=== PATIENT | male | born 1945 | race Caucasian/White ===

== ENCOUNTER → 2016-12-29 | Outpatient (REF) | payer MEDICARE, BC, OTHER | LOC: M SFHCCLAY 08:11 | PROVIDERS: ATTEND Nurse Practitioner | DX: M10.9 Gout, unspecified (principal); E03.9 Hypothyroidism, unspecified ==

== ENCOUNTER → 2017-03-23 | Outpatient (REF) | payer MEDICARE, BC, OTHER ==
[2017-03-23 12:36] LABS: ALBUMIN 3.8 GM/DL (3.2-5.2); ALBUMIN/GLOBULIN RATIO 1.23 (1.00-1.93); BILIRUBIN,TOTAL 0.6 MG/DL (0.2-1.0); CREATININE FOR GFR 1.73 MG/DL (0.70-1.30); GLOMERULAR FILTRATION RATE 41.5 (>42); POTASSIUM SERUM 4.4 MEQ/L (3.5-5.1); TOTAL PROTEIN 6.9 GM/DL (6.4-8.2)
== END ==
LOC: M SFHCCLAY 06:30
PROVIDERS: ATTEND Nurse Practitioner
DX: N18.9 Chronic kidney disease, unspecified (principal); E03.9 Hypothyroidism, unspecified
CPT/HCPCS: 80053; 84443; G0463

== ENCOUNTER → 2017-04-16 | Outpatient (REF) | payer MEDICARE, BC, OTHER | LOC: M SFHCCLAY 08:04 | PROVIDERS: ATTEND Urology | DX: N40.1 Benign prostatic hyperplasia with lower urinary tract symptoms (principal) ==

== ENCOUNTER → 2017-07-15 | Outpatient (REF) | payer MEDICARE, BC, OTHER | LOC: M LAB REF 15:56 | PROVIDERS: ATTEND Internal Medicine Nephrology | DX: D64.9 Anemia, unspecified (principal) ==

== ENCOUNTER → 2017-09-23 | Outpatient (REF) | payer MEDICARE, BC, OTHER ==
[2017-09-23 11:46] LABS: MEAN CORPUSCULAR HEMOGLOBIN 35.1 pg (27.0-33.0); MEAN CORPUSCULAR HGB CONC 34.8 g/dl (32.0-36.5); MEAN CORPUSCULAR VOLUME 100.8 fl (80.0-96.0); PLATELET COUNT, AUTOMATED 265 10^3/uL (150-450); RED CELL DISTRIBUTION WIDTH 12.2 % (11.5-14.5); WHITE BLOOD COUNT 7.8 10^3/uL (4.0-10.0)
[2017-09-23 12:38] LABS: ALBUMIN 3.9 GM/DL (3.2-5.2); ALBUMIN/GLOBULIN RATIO 1.26 (1.00-1.93); BILIRUBIN,TOTAL 0.6 MG/DL (0.2-1.0); CALCIUM LEVEL 9.2 MG/DL (8.8-10.2); CREATININE FOR GFR 1.84 MG/DL (0.70-1.30); FREE T4 1.2 NG/DL (0.76-1.46); GLOMERULAR FILTRATION RATE 38.6 (>42); POTASSIUM SERUM 4.3 MEQ/L (3.5-5.1)
== END ==
LOC: M SFHCCLAY 07:30
PROVIDERS: ATTEND Nurse Practitioner
DX: E03.9 Hypothyroidism, unspecified (principal); E78.2 Mixed hyperlipidemia; N18.9 Chronic kidney disease, unspecified
CPT/HCPCS: 80053; 80061; 84439; 84443; 85027; G0463

== ENCOUNTER 2017-11-11 09:17 | Day surgery (SDC) | payer MEDICARE, BC, OTHER ==
[~2017-11-11] VITALS: Ht 170.2 cm; Wt 82.1 kg
[~2017-11-11 09:17] MED LIST: ALLO100T PO; CRES40TA PO; FLOM5CAP PO; GEMF600T PO; HYDR25TAB PO; LEVO100T5 PO; LOSA50TA20 PO; MAGN1TAB25 PO; METO25TA4 PO; MULT1TAB10 PO; OMEP40CA2 PO; SILD50TA PO; VITA100067 PO
[2017-11-11] MEDS ORDERED: NS 1,000 ML IV ONE (10:00)
[2017-11-11] MEDS ORDERED: LIDOCAINE 2% INJ 100 MG/5 ML SDV (FOR ANES.) As Ordered ONE (10:29)
[2017-11-11] MEDS ORDERED: PROPOFOL 200 MG/20 ML VIAL As Ordered ONE ×2 (10:29→10:40)
[2017-11-11] MEDS ORDERED: ePHEDrine SULFATE 25 MG/5 ML(5MG/ML) SYRINGE As Ordered ONE (10:35)
--- NOTE | 2017-11-11 10:46 | ROOR ---
Patient Name: Jaren Stevens Procedure Date: 11/11/2017 10:23 AM Date of : 1945 Age: 72 Room: [facility] Gender: Male Note Status: Finalized Procedure: Colonoscopy Indications: High risk colon cancer surveillance: Personal history of colonic polyps Providers: Gurpreet Woo Jr, MD Referring MD: NICHOLAS ALBARRAN DO Requesting Provider: Medicines: Propofol per Anesthesia Complications: No immediate complications. Procedure: Pre-Anesthesia Assessment: - Prior to the procedure, a History and Physical was performed, and patient medications and allergies were reviewed. The patient is competent. The risks and benefits of the procedure and the sedation options and risks were discussed with the patient. All questions were answered and informed consent was obtained. Patient identification and proposed procedure were verified by the physician and the nurse in the pre-procedure area and in the procedure room. Mental Status Examination: alert and oriented. Airway Examination: normal oropharyngeal airway and neck mobility. Respiratory Examination: clear to auscultation. CV Examination: normal. ASA Grade Assessment: II - A patient with mild systemic disease. After reviewing the risks and benefits, the patient was deemed in satisfactory condition to undergo the procedure. The anesthesia plan was to use moderate sedation / analgesia (conscious sedation). Immediately prior to administration of medications, the patient was re-assessed for adequacy to receive sedatives. The heart rate, respiratory rate, oxygen saturations, blood pressure, adequacy of pulmonary ventilation, and response to care were monitored throughout the procedure. The physical status of the patient was re-assessed after the procedure. The Colonoscope was introduced through the anus and advanced to the cecum, identified by appendiceal orifice and ileocecal valve. The colonoscopy was performed without difficulty. The quality of the bowel preparation was adequate. Findings: The rectum, sigmoid colon, descending colon, transverse colon, ascending colon, cecum, appendiceal orifice and ileocecal valve appeared normal. The recto-sigmoid colon appeared normal. No evidence of residual or recurrent polyp. Tattoooed area seen and pictures taken Impression: - The rectum, sigmoid colon, descending colon, transverse colon, ascending colon, cecum, appendiceal orifice and ileocecal valve are normal. - The recto-sigmoid colon is normal. - No specimens collected. Recommendation: - Discharge patient to home (ambulatory). - Repeat colonoscopy in 5 years for surveillance. Gurpreet Woo MD Gurpreet Woo Jr, MD 11/11/2017 10:46:13 AM This report has been signed electronically. Number of Addenda: 0 Note Initiated On: 11/11/2017 10:23 AM Estimated Blood Loss: Estimated blood loss: none.
[2017-11-11 11:17] VITALS: BP 140/77
== END 2017-11-11 11:22 | disposition home or self-care (01) ==
LOC: M OPP 09:17
PROVIDERS: ATTEND Surgery
DX: Z12.11 Encounter for screening for malignant neoplasm of colon (principal); Z86.010 Personal history of colon polyps; I12.9 Hypertensive chronic kidney disease with stage 1 through stage 4 chronic kidney disease, or unspecified chronic kidney disease; E78.5 Hyperlipidemia, unspecified; E03.9 Hypothyroidism, unspecified; I25.10 Atherosclerotic heart disease of native coronary artery without angina pectoris; R12 Heartburn; K21.9 Gastro-esophageal reflux disease without esophagitis; M19.90 Unspecified osteoarthritis, unspecified site; G47.30 Sleep apnea, unspecified; R06.83 Snoring; N18.9 Chronic kidney disease, unspecified; N40.1 Benign prostatic hyperplasia with lower urinary tract symptoms; Z91.89 Other specified personal risk factors, not elsewhere classified; Z79.899 Other long term (current) drug therapy; Z80.1 Family history of malignant neoplasm of trachea, bronchus and lung; Z87.891 Personal history of nicotine dependence

== ENCOUNTER → 2017-12-30 | Outpatient (CLI) | payer MEDICARE, BC, OTHER | LOC: M RAD 13:23 | DX: I65.23 Occlusion and stenosis of bilateral carotid arteries (principal) | CPT/HCPCS: 93880 ==

== ENCOUNTER → 2018-05-23 | Outpatient (REF) | payer MEDICARE, BC, OTHER ==
[2018-05-23 12:01] LABS: PSA SCREENING 3.71 NG/ML (< 4.0)
== END ==
LOC: M SFHCCLAY 07:59
DX: E03.9 Hypothyroidism, unspecified (principal); Z12.5 Encounter for screening for malignant neoplasm of prostate; Z23 Encounter for immunization
CPT/HCPCS: 84443

== ENCOUNTER → 2018-11-25 | Outpatient (REF) | payer MEDICARE, BC, OTHER ==
[~2018-11-25] MED LIST changes: +FLOM0.4C39 PO; -FLOM5CAP PO; -GEMF600T PO; +GEMF600T5 PO; -LOSA50TA20 PO; +LOSA50TA88 PO
[2018-11-25 12:19] LABS: CHOLESTEROL RISK RATIO 3.519 (<5); THYROID STIMULATING HORMONE 3.78 uIU/ML (0.358-3.740); THYROXINE (T4) 7.8 UG/DL (4.5-12.0)
== END ==
LOC: M SFHCCLAY 08:39
PROVIDERS: ATTEND Family Medicine
DX: E03.9 Hypothyroidism, unspecified (principal); E55.9 Vitamin D deficiency, unspecified; E78.2 Mixed hyperlipidemia
CPT/HCPCS: 80061; 82652; 84436; 84443; G0463

== ENCOUNTER → 2018-12-16 | Outpatient (CLI) | payer MEDICARE, BC, OTHER ==
--- NOTE | 2018-12-16 13:45 | REP ---
LEFT KNEE, FIVE VIEWS: HISTORY: Contusion. There is no acute fracture or dislocation. There is minimal narrowing of the knee joint space. The patellofemoral joint space is normal in appearance. IMPRESSION: There is no acute fracture or dislocation. Electronically Signed by Cleveland Green MD 12/16/2018 01:47 P
== END ==
LOC: M WUC 12:33
PROVIDERS: ATTEND Physician Assistant
DX: S80.02XA Contusion of left knee, initial encounter (principal)

== ENCOUNTER → 2019-03-08 | Outpatient (CLI) | payer MEDICARE, BC, OTHER ==
[~2019-03-08] MED LIST changes: -MAGN1TAB25 PO; +MAGN1TAB26 PO
--- NOTE | 2019-03-08 17:40 | REP ---
MRI left knee without contrast: History: Medial collateral ligament sprain left knee. Comparison radiographs December 16, 2018. Technique: Axial, coronal and sagittal imaging planes are utilized. T1, proton density and T2-weighted scans were obtained with and without fat saturation. MRI findings: Cortical and medullary bone signal intensity are normal. There is a small joint effusion. No Smith's cyst is appreciated. There is no evidence of occult fracture. There is some thickening and increased signal intensity along the proximal 1.5 cm of the medial collateral ligament consistent with sprain/partial tear of this structure. No lateral collateral ligament destruction is appreciated. The anterior and posterior cruciate ligaments appear intact. Patellar and quadriceps tendons are intact. There is thickening of the proximal patellar tendon at its insertion consistent with chronic patellar tendinopathy. There is some patellar insertion site spurring as well. There is no visible medial or lateral meniscal tear. No articular cartilaginous defect is seen. Exam is otherwise unremarkable. Impression: Joint effusion. Evidence of chronic patellar tendinosis. Partial tear proximal fibers of the medial collateral ligament. No other evidence of internal derangement. Electronically Signed by Layo Wylie MD 03/09/2019 08:06 A
== END ==
LOC: M RAD 15:20
PROVIDERS: ATTEND Orthopaedic Surgery Sports Medicine
DX: S83.412D Sprain of medial collateral ligament of left knee, subsequent encounter (principal); M25.462 Effusion, left knee; X58.XXXD Exposure to other specified factors, subsequent encounter; Y92.9 Unspecified place or not applicable

== ENCOUNTER → 2019-04-17 | Outpatient (REF) | payer MEDICARE, BC, OTHER ==
[2019-04-17 17:22] LABS: FERRITIN 345 NG/ML (26-388); IRON (FE) 131 UG/DL (65-175); PERCENT SATURATION 40.1 % (19.7-50.0); TOTAL IRON BINDING CAPACITY 327 UG/DL (250-450); VITAMIN B12 LEVEL 248 PG/ML
[2019-04-17 17:52] LABS: FOLATE > 24.0 NG/ML
[2019-04-22 08:15] LABS: Methylmalonic Acid 233 nmol/L (0-378)
== END ==
LOC: M LAB REF 12:58
PROVIDERS: ATTEND Internal Medicine Nephrology
DX: D64.9 Anemia, unspecified (principal)

== ENCOUNTER → 2019-05-16 | Outpatient (REF) | payer MEDICARE, BC, OTHER ==
[2019-05-16 11:46] LABS: ALBUMIN 3.6 GM/DL (3.2-5.2); CALCIUM LEVEL 9.3 MG/DL (8.8-10.2); CREATININE FOR GFR 1.54 MG/DL (0.70-1.30); GLOMERULAR FILTRATION RATE 47.2 (>42); PHOSPHORUS LEVEL 2.7 MG/DL (2.5-4.9)
== END ==
LOC: M LABDRAWC 11:21
PROVIDERS: ATTEND Internal Medicine Nephrology
DX: N18.3 Chronic kidney disease, stage 3 (moderate) (principal)

== ENCOUNTER → 2019-05-16 | Outpatient (REF) | payer MEDICARE, BC, OTHER ==
[2019-05-16 11:55] LABS: THYROID STIMULATING HORMONE 1.93 uIU/ML (0.358-3.740)
== END ==
LOC: M SFHCCLAY 07:57
PROVIDERS: ATTEND Family Medicine
DX: E03.9 Hypothyroidism, unspecified (principal); Z12.5 Encounter for screening for malignant neoplasm of prostate
CPT/HCPCS: 80069; 84443; G0103; G0463

== ENCOUNTER → 2019-09-08 | Outpatient (CLI) | payer MEDICARE, BC, OTHER ==
[~2019-09-08] MED LIST changes: -OMEP40CA2 PO; +OMEP40CA97 PO
--- NOTE | 2019-09-08 10:54 | REP ---
Cervical spine seven views: There are no comparisons. Vertebral body heights and alignment are normal. There is advanced degenerative disc disease at C5-6 C6-7 see 71. The prevertebral soft tissues are unremarkable. The facets are normally aligned. 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 There is no listhesis on flexion or extension. The odontoid view is unremarkable. There is calcified atheroma in the carotid arteries bilaterally. There is foraminal encroachment from uncinate spurring on the left at C 05/06 and C6-7. The foramen on the right are obscured from patient positioning. Impression: Advanced multilevel degenerative disc disease. Foraminal encroachment on the left at C5-6 and C6-7. The right foramen are obscured. Electronically Signed by Cj Dawson MD 09/08/2019 10:46 A
== END ==
LOC: M CLY 09:31
PROVIDERS: ATTEND Family Medicine
DX: M62.838 Other muscle spasm (principal); M50.322 Other cervical disc degeneration at C5-C6 level; M50.323 Other cervical disc degeneration at C6-C7 level

== ENCOUNTER → 2019-09-16 | Outpatient (CLI) | payer MEDICARE, BC, OTHER ==
--- NOTE | 2019-09-16 12:59 | REP ---
MRI cervical spine without contrast: History: Neck pain worsened by looking down and turning the head. Cervical radiculopathy. Comparison radiographs are from September 08, 2019. Technique: Sagittal and axial T1 and T2-weighted scans are acquired in the usual fashion with and without fat saturation. Sequences include spin echo, turbo spin-echo, and STIR imaging sequences. MRI findings: There is straightening of the normal cervical lordosis. Vertebral body heights are preserved. Axial and sagittal images at the C2-3 level demonstrate minimal diffuse disc bulging. There is uncovertebral spurring bilaterally at C2-3 but neural foramina appear adequate. At C3-C4, there is mild disc bulging and bilateral uncovertebral spurring as well. No central canal stenosis or significant foraminal narrowing. At C4-5, there is diffuse disc bulging. There is a 2 mm degenerative spondylolisthesis at C4-5. No cord compression is seen. No foraminal stenosis is noted. There is facet hypertrophy bilaterally. At C5-C6 there is degenerative disc narrowing and large anterior discogenic spurs are seen indenting the posterior wall of the hypopharynx. There is a broad-based left posterior disc protrusion with discogenic spurring flattening the ventral margin of the cord. Cord is displaced somewhat posteriorly. There is ligamentum flavum hypertrophy contributing to mild to moderate central canal stenosis at C5-6. There is left greater than right bilateral uncovertebral spurring. Midline AP dimension of the thecal sac at C5-6 is 7 mm. At C6-C7, there is a large right posterior disc protrusion with associated osteophyte formation compressing the cord and displacing it posteriorly. This is associated with some mild ligamentum flavum hypertrophy. There is significant neural foraminal narrowing on the right and mild to moderate uncovertebral spurring on the left. The mid line AP dimension of the thecal sac at the C6-7 is 4.71 mm. No T2 hyperintense cord lesion is seen. At C7-T1, there is degenerative narrowing of the disc but no significant disc protrusion is seen. No thecal sac compression. Impression: Degenerative spondylosis most pronounced at C5-6 and C6-7. There is a large right posterior disc protrusion with spurring at C6-7 producing cord compression and bilateral neural foraminal narrowing. There is a mild to moderate a left posterior disc protrusion at C5-6 flattening the left ventral margin of the cord. Electronically Signed by Layo Wylie MD 09/16/2019 01:59 P
== END ==
LOC: M RAD 11:13
PROVIDERS: ATTEND Family Medicine
DX: M50.322 Other cervical disc degeneration at C5-C6 level (principal); M50.221 Other cervical disc displacement at C4-C5 level; M50.21 Other cervical disc displacement, high cervical region; M25.78 Osteophyte, vertebrae; M47.812 Spondylosis without myelopathy or radiculopathy, cervical region; M54.12 Radiculopathy, cervical region

== ENCOUNTER 2019-10-23 16:21 | Day surgery (SDC) | payer MEDICARE, BC, OTHER ==
[~2019-10-23] VITALS: Ht 170.2 cm; Wt 79.5 kg
[2019-10-23 18:58] LABS: BASO % 0.3 % (0.0-1.0); EOS # 0.1 10^3/uL (0.0-0.5); EOS % 1.3 % (0.0-3.0); HEMATOCRIT 32.4 % (42.0-52.0); HEMOGLOBIN 11.3 g/dl (13.5-17.5); LYMPH # 1.3 10^3/uL (1.5-5.0); LYMPH % 11.6 % (24.0-44.0); MEAN CORPUSCULAR HEMOGLOBIN 35.6 pg (27.0-33.0); MEAN CORPUSCULAR HGB CONC 34.9 g/dl (32.0-36.5); MEAN CORPUSCULAR VOLUME 102.2 fl (80.0-96.0); MONO # 1.2 10^3/uL (0.0-0.8); MONO % 11.1 % (0.0-5.0); NEUTROPHILS # 8.1 10^3/uL (1.5-8.5); PLATELET COUNT, AUTOMATED 200 10^3/uL (150-450); RED BLOOD COUNT 3.17 10^6/uL (4.30-6.10); WHITE BLOOD COUNT 10.8 10^3/uL (4.0-10.0)
[2019-10-23] MEDS ORDERED: NS 1,000 ML IV ONE (19:00)
[2019-10-23 19:18] LABS: ALBUMIN 3.5 GM/DL (3.2-5.2); BILIRUBIN,DIRECT 0.2 MG/DL (0.0-0.2); BILIRUBIN,TOTAL 0.7 MG/DL (0.2-1.0); CALCIUM LEVEL 9.4 MG/DL (8.8-10.2); CREATININE FOR GFR 2.67 MG/DL (0.70-1.30); POTASSIUM SERUM 3.7 MEQ/L (3.5-5.1)
--- NOTE | 2019-10-23 20:16 | REPVR ---
PROCEDURE INFORMATION: Exam: CT Abdomen And Pelvis Without Contrast Exam date and time: 10/23/2019 7:36 PM Age: 74 years old Clinical history: Abdominal pain; Localized; Right lower quadrant (rlq); Additional info: Rlq pain, concern for appendicitis TECHNIQUE: Imaging protocol: Computed tomography of the abdomen and pelvis without contrast. Radiation optimization: All CT scans at this facility use at least one of these dose optimization techniques: automated exposure control; mA and/or kV adjustment per patient size (includes targeted exams where dose is matched to clinical indication); or iterative reconstruction. COMPARISON: No relevant prior studies available. FINDINGS: Limitations: Study is limited by the absence of contrast. Heart: Low dense blood pool in the heart indicating anemia. Liver: Enlarged low attenuating liver, evidence of hepatic steatosis. Gallbladder and bile ducts: Gallbladder distention with mild sludge. Pancreas: Normal. No ductal dilation. Spleen: Borderline spleen size. Adrenals: Normal. No mass. Kidneys and ureters: Normal. No hydronephrosis. Stomach and bowel: Gastric wall thickening, correlate for gastritis. Appendix: Enlarged 12 mm appendix with adjacent fat stranding. Evidence of acute appendicitis. Intraperitoneal space: Unremarkable. No free air. No significant fluid collection. Vasculature: Mild to moderate aortic and iliac artery atherosclerotic calcification. Lymph nodes: Unremarkable. No enlarged lymph nodes. Bladder: Unremarkable as visualized. Reproductive: Unremarkable as visualized. Bones/joints: Moderate lumbar spondylosis with previous spinal surgery. Soft tissues: Unremarkable. IMPRESSION: 1. Enlarged 12 mm appendix with adjacent fat stranding. Evidence of acute appendicitis. 2. Gastric wall thickening, correlate for gastritis. Electronically signed by: Erik Flores On 10/23/2019 20:16:30 PM
[2019-10-23] MEDS ORDERED: PIPERACILLIN/TAZOBACTAM SOD 3.375 GM in D5W MINI-BAG PLUS 50 ML IV ONE (20:30)
[2019-10-23] MEDS ORDERED: ATOR80TA59 PO (20:45)
[2019-10-23] MEDS ORDERED: ACET-897 PO (20:45)
[2019-10-23] MEDS ORDERED: GLUCTAB8 PO (20:45)
[2019-10-23] MEDS ORDERED: ZYLO300T6 PO (20:45)
[2019-10-23] MEDS ORDERED: TADA20TA PO (20:45)
[2019-10-23] MEDS ORDERED: FLON1SPR (20:45)
[2019-10-23] MEDS: LR 1,000 ML IV SCH (20:48)
[2019-10-23] MEDS ORDERED: ATORVASTATIN 20 MG TAB PO SCH (21:00)
[2019-10-23] MEDS ORDERED: ONDANSETRON 4MG/2ML VIAL (J2405) IV PRN (21:00)
[2019-10-23] MEDS ORDERED: MORPHINE 2 MG/ML 1ML VIAL (J2270) IV PRN (21:00)
[2019-10-23] MEDS ORDERED: LIDOCAINE 2% INJ 100 MG/5 ML SDV (FOR ANES.) As Ordered ONE (22:16)
[2019-10-23] MEDS ORDERED: MIDAZOLAM INJ 2 MG/2 ML VIAL (J2250) As Ordered ONE (22:16)
[2019-10-23] MEDS ORDERED: fentaNYL 250 MCG/5 ML INJECTION (J3010) As Ordered ONE (22:16)
[2019-10-23] MEDS ORDERED: PROPOFOL 200 MG/20 ML VIAL As Ordered ONE (22:16)
[2019-10-23] MEDS ORDERED: ROCURONIUM BROMIDE 50 MG/5 ML VIAL As Ordered ONE (22:16)
[2019-10-23] MEDS ORDERED: LIDOCAINE 1% SDV INJ 30 ML VIAL As Ordered ONE (22:39)
[2019-10-23] MEDS ORDERED: BUPIVACAINE HCL 0.25% 30 ML VIAL As Ordered ONE (22:39)
[2019-10-23] MEDS ORDERED: ONDANSETRON 4MG/2ML VIAL (J2405) As Ordered ONE (22:55)
[2019-10-23] MEDS ORDERED: METOCLOPRAMIDE INJ 10MG/2ML VIAL (J2765) As Ordered ONE (22:55)
[2019-10-23] MEDS ORDERED: dexameTHASONE 4 MG/ML 1ML VIAL (J1100) As Ordered ONE (22:55)
--- NOTE | 2019-10-23 23:56 | HPEPDOC ---
General Surgery H&P Date of Admission Oct 23, 2019 Attending Physician: LYNETTE DIAS MD History and Physical CHIEF COMPLAINT: abdominal pain HISTORY OF PRESENT ILLNESS: Patient presented himself to the emergency from his doctor's office with a 3day history of right lower quadrant abdominal pain. He reports that the pain started last Wednesday and was worse Wednesday evening to Wednesday. This was associated with nausea, vomiting, anorexia as well as a few loose stools. He initially thought he ate something. This came off was sudden. He waited out for another day and when 3 cm of this and was advised to go to the emergency room suspecting possibility of appendicitis. He denies any sick contacts. He reports a low-grade fever Wednesday morning and early Wednesday morning. He actually felt mildly better Wednesday was able to take in a small amount of food and water Wednesday without throwing up. In the ER he was evaluated and was found to have evidence for appendicitis. ALLERGIES: Please see below. HOME MEDICATIONS: Please see below. PAST MEDICAL HISTORY: 1. Hypertension 2. Hyperlipidemia. 3. GERD 4. Sleep apnea (not on CPAP) PAST SURGICAL HISTORY: 1. Back surgery. 2. Right carpal without surgery 3. Right shoulder surgery 4. Cataract surgery PERSONAL/SOCIAL HISTORY: Patient denies smoking. REVIEW OF SYSTEMS: GENERAL: Patient reports 3 a history of abdominal pain with slight low-grade fever. HEENT: Denies blurred vision. NECK: Denies any neck pain. CARDIOVASCULAR: Denies chest pain and palpitations. MUSCULOSKELETAL: Denies arthralgias, back pain and thrombophlebitis. SKIN: Denies rash. NEUROLOGIC: Denies headache, stroke and transient ischemic attack. PSYCHIATRIC: Denies anxiety and depression. ENDOCRINE: Denies thyroid disease. HEMATOLOGY/ONCOLOGY: Denies any bleeding or clotting disorder. Patient not on any anticoagulants HEART: Denies any chest pains, palpitations, paroxysmal dyspnea, orthopnea. PULMONARY: Denies chronic cough, dyspnea and wheezing. GASTROINTESTINAL: See HPI. GENITOURINARY: Denies dysuria, frequency, hematuria and nocturia. ENDOCRINE: Denies polydipsia, polyphagia, polyuria, heat or cold intolerance. INFECTIOUS: Denies any recent upper respiratory tract infection, UTI, need for use of antibiotics. NUTRITION: Reports anorexia. PHYSICAL EXAMINATION: VITAL SIGNS: Please see below. GENERAL APPEARANCE: Patient seen on stretcher, pleasant and cooperative. Mild discomfort with moving around the bed. Awake, alert, oriented. HEENT: Normocephalic, atraumatic. [place] palpebral conjunctivae. Anicteric sclerae. Lips moist. CHEST: No chest wall abnormalities. Normal respiratory motion/effort. NECK: Supple. No thyromegaly. No lymphadenopathies. LUNGS: Lung sounds are clear to auscultation bilaterally. No wheezing appreciated. HEART: No chest wall abnormalities. Heart rate and rhythm are regular with no murmurs. ABDOMEN: Abdomen is mildly distended slightly tympanitic to percussion. No umbilical or groin herniations. No surgical scars. He is tender to palpation over the right lower quadrant area extending towards the suprapubic area with mild guarding on examination. SKIN: Warm and dry. EXTREMITIES: Extremities have no deformities. No edema identified. NEUROLOGICAL: Awake, alert, oriented. ANCILLARIES: . LABORATORY DATA: Please see below. MICROBIOLOGY: Please see below. IMAGING: CT scan abdomen and pelvis 1. Enlarged 12 mm appendix with adjacent fat stranding. Evidence of acute appendicitis. 2. Gastric wall thickening, correlate for gastritis. IMPRESSION AND PLAN: Acute appendicitis with localized peritonitis Patient's history consistent with acute appendicitis. I'm slightly concerned on the fact that he is starting to feel better that this might be perforated though there is no evidence of any significant free fluid or free air on CT. He does have a thickened inflamed appendix on CT. He is tender over the right upper quadrant area mostly. Patient is advised for the need for surgery. We'll bring him to the operating room for laparoscopic appendectomy. I explained to the patient the details of the procedure, its risks and benefits. Risks discussed including mild risks for bleeding, infection or abscess formation subsequently and small possibility of injuring nearby bowels which may be stuck to the derik endix as well as the general risks for laparoscopy as well as for general anesthesia. Patient did not have much questions to ask and has agreed to undergo the procedure. His length of stay in the hospital will be determined by his intraoperative and perioperative course. He has been given a dose of Zosyn 3.375 g IV will he was in the emergency room this will be usually continued perioperatively. Vital Signs Vital Signs Date Time Temp Pulse Resp B/P (MAP) Pulse Ox O2 Delivery O2 Flow Rate FiO2 10/23/19 19:54 100.3 73 18 131/60 (83) 100 Room Air Laboratory Data Labs 24H Laboratory Tests 2 10/23/19 18:34: Immature Granulocyte % (Auto) 0.7, Neutrophils (%) (Auto) 75.0H, Lymphocytes (%) (Auto) 11.6L, Monocytes (%) (Auto) 11.1H, Eosinophils (%) (Auto) 1.3, Basophils (%) (Auto) 0.3, Neutrophils # (Auto) 8.1, Lymphocytes # (Auto) 1.3L, Monocytes # (Auto) 1.2H, Eosinophils # (Auto) 0.1, Basophils # (Auto) 0.0, Nucleated Red Blood Cells % (auto) 0.0, Anion Gap 10, Glomerular Filtration Rate 25.0L, Calcium Level 9.4, Total Bilirubin 0.7, Direct Bilirubin 0.2, Aspartate Amino Transf (AST/SGOT) 23, Alanine Aminotransferase (ALT/SGPT) 30, Alkaline Phosphatase 61, Total Protein 8.0, Albumin 3.5, Albumin/Globulin Ratio 0.78L, Lipase 367 CBC/BMP Laboratory Tests 10/23/19 18:34 Home Medications Scheduled Acetaminophen (Tylenol Extra Strength) 500 Mg Tablet, 1,000 MG PO BID, (Reported) Allopurinol (Zyloprim) 300 Mg Tablet, 150 MG PO DAILY, (Reported) Amoxicillin/Potassium Clav (Augmentin 875-125 Tablet) 1 Each Tablet, 1 TAB PO BID Atorvastatin Calcium (Atorvastatin Calcium) 80 Mg Tablet, 40 MG PO QHS, (Reported) Gemfibrozil (Gemfibrozil) 600 Mg Tab, 600 MG PO QAM, (Reported) Gemfibrozil (Gemfibrozil) 600 Mg Tab, 300 MG PO QHS, (Reported) Glucosam/Bay-Msm1/C/Omari/Bosw (Glucosamine-Chondroitin Caplet) 1 Each Tablet, 1 TAB PO BID, (Reported) Hydrochlorothiazide (Hydrochlorothiazide) 25 Mg Tab, 25 MG PO DAILY, (Reported) Levothyroxine Sodium (Levothyroxine Sodium) 100 Mcg Tab, 100 MCG PO DAILY, (Reported) Losartan Potassium (Losartan Potassium) 50 Mg Tab, 50 MG PO DAILY, (Reported) Magnesium Oxide (Magnesium Oxide) 400 Mg Tab, 400 MG PO BID, (Reported) Metoprolol Tartrate (Metoprolol Tartrate) 25 Mg Tab, 12.5 MG PO DAILY, (Reported) Omeprazole (Omeprazole) 40 Mg Cap, 40 MG PO DAILY, (Reported) Tamsulosin HCl (Flomax) 0.4 Mg Cap, 0.4 MG PO DAILY, (Reported) Scheduled PRN Fluticasone Propionate (Flonase Allergy Relief) 9.9 Ml [place].susp, 2 SPRAY NA DAILY PRN for ALLERGIES, (Reported) Tadalafil (Tadalafil) 20 Mg Tablet, 20 MG PO DAILY PRN for ERECTILE DYSFUNCTION, (Reported) Allergies Coded Allergies: No Known Drug Allergies (Verified Allergy, Unknown, 10/23/19) A-FIB/CHADSVASC A-FIB History Current/History of A-Fib/PAF?: No Current PO Anticoag Therapy: No LYNETTE DIAS MD Oct 23, 2019 23:56
[2019-10-24] MEDS ORDERED: SUGAMMADEX SODIUM 500 MG/5 ML VIAL (BRIDION) As Ordered ONE (00:20)
[2019-10-24] MEDS ORDERED: oxyCODONE 5MG TAB PO PRN (00:30)
[2019-10-24] MEDS ORDERED: ONDANSETRON 4MG/2ML VIAL (J2405) IV PRN (00:30)
[2019-10-24] MEDS ORDERED: fentaNYL 100 MCG/2 ML INJECTION (J3010) IV PRN (00:30)
[2019-10-24] MEDS ORDERED: LR 1,000 ML IV SCH (00:30)
[2019-10-24] MEDS ORDERED: FLUTICASONE PROP 0.05% NASAL SPRAY 16 GM (FLONASE) PRN (01:00)
[2019-10-24] MEDS ORDERED: PILL CUTTER 1 EACH XX PRN (01:15)
[2019-10-24 01:36] VITALS: BP 168/81
[2019-10-24] MEDS: PIPERACILLIN/TAZOBACTAM SOD 3.375 GM in D5W MINI-BAG PLUS 50 ML IV SCH ×2 (02:14→09:03)
[2019-10-24 02:16] VITALS: BP 164/81
[2019-10-24] MEDS ORDERED: LEVOTHYROXINE 100MCG TABLET (0.1MG) PO SCH (06:00)
[2019-10-24] MEDS: LR 1,000 ML IV SCH (07:49)
[2019-10-24 08:15] LABS: BASO % 0.1 % (0.0-1.0); HEMATOCRIT 31.1 % (42.0-52.0); HEMOGLOBIN 10.9 g/dl (13.5-17.5); LYMPH # 0.5 10^3/uL (1.5-5.0); LYMPH % 3.9 % (24.0-44.0); MEAN CORPUSCULAR HEMOGLOBIN 35.4 pg (27.0-33.0); MONO # 0.7 10^3/uL (0.0-0.8); MONO % 5.2 % (0.0-5.0); NEUTROPHILS # 11.5 10^3/uL (1.5-8.5); NEUTROPHILS % 90.2 % (36.0-66.0); PLATELET COUNT, AUTOMATED 193 10^3/uL (150-450); RED BLOOD COUNT 3.08 10^6/uL (4.30-6.10); WHITE BLOOD COUNT 12.7 10^3/uL (4.0-10.0)
[2019-10-24 08:32] LABS: CALCIUM LEVEL 9.2 MG/DL (8.8-10.2); CREATININE FOR GFR 1.86 MG/DL (0.70-1.30); GLOMERULAR FILTRATION RATE 37.9 (>42); POTASSIUM SERUM 3.9 MEQ/L (3.5-5.1)
[2019-10-24] MEDS ORDERED: TAMSULOSIN 0.4 MG CAP PO SCH (09:00)
[2019-10-24] MEDS ORDERED: allopurinoL 300 MG TAB PO SCH (09:00)
[2019-10-24] MEDS ORDERED: OMEPRAZOLE 20 MG CAP PO SCH (09:00)
[2019-10-24] MEDS ORDERED: GEMFIBROZIL 600 MG TAB PO SCH ×2 (09:00→21:00)
[2019-10-24] MEDS ORDERED: METOPROLOL TART 12.5 MG PER 1/2 TAB PO SCH (09:00)
[2019-10-24] MEDS ORDERED: hydroCHLOROthiazide 25 MG TAB PO SCH (09:00)
[2019-10-24] MEDS ORDERED: LOSARTAN 50 MG TAB PO SCH (09:00)
[2019-10-24 09:03] VITALS: BP 166/90
[2019-10-24] MEDS ORDERED: AUGM875T28 PO (12:33)
--- NOTE | 2019-10-24 22:10 | ROOPDOC ---
[facility] Report Of Operation Report of Operation DATE OF PROCEDURE: 10/23/19 PREPROCEDURE DIAGNOSES: acute appendicitis. POSTPROCEDURE DIAGNOSES: acute appendicitis, locally perforated. PROCEDURE: Laparoscopic Appendectomy. SURGEON: Chase Roberson MD MEDICAL DIAGNOSTIC RADIOGRAPHER: ANESTHESIA: General Anesthesia. ESTIMATED BLOOD LOSS: Approximately 10 mL. COMPLICATIONS: none. REMARKS: appendix inflamed, thickened throughout its course, attached to the medial umbilical ligament, with localized perforation near the tip. Umbilical ligament inflamed. No free fluid, abscess. SPECIMEN: appendix. DESCRIPTION OF PROCEDURE: Patient has been given a dose of Zosyn perioperatively.Patient was brought to the operating room, placed supine on the table. Sequential compression device placed for DVT prophylaxis. General endotracheal anesthesia started. The abdomen prepped and draped in usual sterile fashion. After a surgical timeout, we began our surgery Entry into the abdomen done through an incision above the umbilicus. Veress needle inserted on a controlled fashion. Intra-abdominal placement confirmed with saline drop technique. CO2 insufflation started to a pressure of 15 mmHg. Using the same incision an 8 mm port was placed under direct vision of laparoscope. Insertion site was inspected for injury and none was found. He was placed on a Trendelenburg position the right side tilted to about 30 to allow for better visualization of the appendix. Patient had a full bladder so I placed a 5 mm port at the left upper quadrant area and at the left lower abdomen instead of my usual suprapubic port placement. Operative findings: The appendix is inflamed, thickened throughout its course, attached to the medial umbilical ligament, with localized perforation near the tip. Umbilical ligament inflamed. No free fluid, abscess. The appendix was detached from its attachment to the umbilical ligament The Surrounding bowels retracted away from the appendix. The mesial appendix is thickened and inflamed. The ligament of Treves is stuck to the base of the appendix and was divided to better visualize the course of the base of the appendix. The attachment of the appendix to the cecum appears viable and healthy. This was grasped to pull the base of the appendix into view. The mesoappendix was divided using Harmonic scalpel down to the base. Two PDS Endoloops were placed to ligate the appendix at its base then divided with a Harmonic Scalpel the stump cauterized. Stump appears intact but tissues inflamed. Appendix was then delivered into an Endo Catch bag. After re- insufflation the surgical site was inspected for hemostasis, the visualized flui d collections irrigated and suctioned off until clear return. Surrounding areas of the abdomen and inspected for fluid collections or signs of injury. The abdomen was deflated. All ports removed. The umbilical fascial defect repaired with 0 Vicryl in a mattress fashion. All skin incisions closed with 4-0 Monocryl in a subcuticular fashion. Steri-Strips and gauze dressing used for wound coverage. Patient was promptly awake and extubated and brought to recovery room stable. All counts of sponges and instruments verified to be correct. CHASE ROBERSON MD Oct 24, 2019 22:10
== END 2019-10-24 14:15 | disposition home or self-care (01) ==
LOC: M ED 16:21 → M SDC 16:22 → M MS5PR 10-24 01:31 → M PM&R 10-24 01:31 → M SDC 10-24 14:15
PROVIDERS: ATTEND Surgery
DX: K35.32 Acute appendicitis with perforation, localized peritonitis, and gangrene, without abscess (principal); I12.9 Hypertensive chronic kidney disease with stage 1 through stage 4 chronic kidney disease, or unspecified chronic kidney disease; E78.5 Hyperlipidemia, unspecified; K21.9 Gastro-esophageal reflux disease without esophagitis; G47.33 Obstructive sleep apnea (adult) (pediatric); N18.9 Chronic kidney disease, unspecified; E03.9 Hypothyroidism, unspecified
CPT/HCPCS: 36415; 44970; 74176; 80048; 80076; 83690; 85025; 88304; 96374; 99284; G0463; J1100; J2250; J2405; J2543; J3010

== ENCOUNTER → 2019-10-30 | Outpatient (CLI) | payer MEDICARE, BC, OTHER ==
[~2019-10-30] MED LIST changes: +ACET-897 PO; +ATOR80TA59 PO; +AUGM875T28 PO; +FLON1SPR; +GLUCTAB8 PO; +TADA20TA PO; +ZYLO300T6 PO
--- NOTE | 2019-10-30 11:42 | REP ---
CT cervical spine: 10/30/2019. Indication: Neck pain. Comparison: MRI cervical spine dated 09/16/2019. Technique: Unenhanced axial images of the cervical spine were obtained with sagittal and coronal reconstructions provided. Findings: There is no acute fracture, subluxation or dislocation. There is mild straightening of the cervical lordosis. Significant disc osteophytes are present at C5/C6 and C6/C7 with severe narrowing of the spinal canal at C6/C7. No erosive lesions of the visualized bones are present. Bilateral carotid atherosclerotic disease is noted. Impression: No acute fracture. Degenerative sequelae as described most pronounced at C6/C7 with severe spinal canal narrowing. Findings are stable compared to recent MRI cervical spine. Electronically Signed by Klaus Dong DO 10/30/2019 11:34 A
== END ==
LOC: M RAD 10:19
PROVIDERS: ATTEND Orthopaedic Surgery
DX: M48.02 Spinal stenosis, cervical region (principal); M50.323 Other cervical disc degeneration at C6-C7 level

== ENCOUNTER → 2020-02-12 | Outpatient (REF) | payer MEDICARE, BC, OTHER ==
[2020-02-12 11:32] LABS: BASO % 0.5 % (0.0-1.0); EOS # 0.5 10^3/uL (0.0-0.5); EOS % 6.2 % (0.0-3.0); HEMATOCRIT 36.5 % (42.0-52.0); LYMPH # 1.9 10^3/uL (1.5-5.0); LYMPH % 25.5 % (24.0-44.0); MEAN CORPUSCULAR HEMOGLOBIN 35.3 pg (27.0-33.0); MEAN CORPUSCULAR HGB CONC 35.6 g/dl (32.0-36.5); MEAN CORPUSCULAR VOLUME 99.2 fl (80.0-96.0); MONO # 0.8 10^3/uL (0.0-0.8); MONO % 10.7 % (0.0-5.0); NEUTROPHILS # 4.3 10^3/uL (1.5-8.5); NEUTROPHILS % 56.7 % (36.0-66.0); PLATELET COUNT, AUTOMATED 251 10^3/uL (150-450); RED BLOOD COUNT 3.68 10^6/uL (4.30-6.10); WHITE BLOOD COUNT 7.6 10^3/uL (4.0-10.0)
[2020-02-12 12:03] LABS: ALBUMIN 3.7 GM/DL (3.2-5.2); BILIRUBIN,TOTAL 0.5 MG/DL (0.2-1.0); CALCIUM LEVEL 9.3 MG/DL (8.8-10.2); CREATININE FOR GFR 1.52 MG/DL (0.70-1.30); GLOMERULAR FILTRATION RATE 47.8 (>42); POTASSIUM SERUM 4.8 MEQ/L (3.5-5.1); TOTAL PROTEIN 6.9 GM/DL (6.4-8.2)
== END ==
LOC: M SFHCCLAY 09:14
PROVIDERS: ATTEND Family Medicine
DX: Z01.818 Encounter for other preprocedural examination (principal); D63.8 Anemia in other chronic diseases classified elsewhere; E78.2 Mixed hyperlipidemia
CPT/HCPCS: 80053; 85025; G0463

== ENCOUNTER → 2021-05-14 | Outpatient (CLI) | payer MEDICARE, BC, OTHER ==
[~2021-05-14] MED LIST changes: +HYDR-3490 PO; -HYDR25TAB PO; +OMEP40CA4 PO; -OMEP40CA97 PO
--- NOTE | 2021-05-16 16:06 | ECHO ---
ECHOCARDIOGRAM DATE OF PROCEDURE: 05/14/2021 Age: 75 Gender: Male Height: Weight: REFERRING PHYSICIAN: PAT Ridley REASON FOR STUDY: Palpitations. 2D MEASUREMENTS: IVS 1.2 cm LV 4.0 cm LVPW 1.2 cm LA 3.9 cm Aorta 3.3 cm IVC 1.7 cm DOPPLER MEASUREMENT Peak velocity across the aortic valve 1.1 m/s Peak velocity across the LVOT 0.89 m/s Mitral E 0.90 Mitral A 0.81 with a ratio of 1.1 2D COMMENTS: 1. Normal left ventricular size, wall thickness and normal global left ventricular systolic function. The estimated left ventricular systolic ejection fraction is 60 to 65%. 2. Normal left atrium. Normal right atrium and right ventricle. 3. The atrium septum appeared to be normal without evidence of defect or shunt. 4. Normal aortic root. 5. No pericardial effusion seen. 6. Minimally calcified aortic valve with normal leaflet excursion. Normal mitral valve, tricuspid valve and pulmonary valve. The proximal pulmonary artery branches were not well visualized. 7. The inferior vena cava was normal in size. Central venous pressure is most likely normal. DOPPLER: It detects mild mitral regurgitation. Assessment of the left ventricular diastolic function was normal. IMPRESSION: 1. Normal global left ventricular systolic and diastolic function. 2. Mild mitral regurgitation.
== END ==
LOC: M CARPUL 08:12
PROVIDERS: ATTEND Nurse Practitioner Primary Care
DX: R00.2 Palpitations (principal); I34.0 Nonrheumatic mitral (valve) insufficiency

== ENCOUNTER → 2021-06-13 | Outpatient (REF) | payer MEDICARE, BC, OTHER ==
[2021-06-13 13:32] LABS: ALBUMIN 3.9 GM/DL (3.2-5.2); BILIRUBIN,TOTAL 0.7 MG/DL (0.2-1.0); CREATININE FOR GFR 1.82 MG/DL (0.70-1.30); GLOMERULAR FILTRATION RATE 38.8 (>42); POTASSIUM SERUM 3.9 MEQ/L (3.5-5.1); THYROID STIMULATING HORMONE 2.59 uIU/ML (0.358-3.740); TOTAL PROTEIN 6.8 GM/DL (6.4-8.2)
== END ==
LOC: M SFHCCLAY 07:59
PROVIDERS: ATTEND Family Medicine
DX: E03.9 Hypothyroidism, unspecified (principal); I12.9 Hypertensive chronic kidney disease with stage 1 through stage 4 chronic kidney disease, or unspecified chronic kidney disease; Z12.5 Encounter for screening for malignant neoplasm of prostate
CPT/HCPCS: 80053; 84443; G0103; G0463

== ENCOUNTER → 2021-09-17 | Outpatient (REF) | payer MEDICARE, BC, OTHER | LOC: M LAB REF 13:16 | PROVIDERS: ATTEND Nurse Practitioner Family | DX: E83.42 Hypomagnesemia (principal) ==

== ENCOUNTER → 2022-05-29 | Outpatient (REF) | payer MEDICARE, BC, OTHER ==
[~2022-05-29] MED LIST changes: +LOSA50TA28 PO; -LOSA50TA88 PO
[2022-05-29 12:22] LABS: ALBUMIN 3.9 GM/DL (3.2-5.2); BILIRUBIN,TOTAL 0.4 MG/DL (0.2-1.0); CALCIUM LEVEL 9.9 MG/DL (8.8-10.2); CREATININE FOR GFR 1.93 MG/DL (0.70-1.30); GLOMERULAR FILTRATION RATE 36.1 (>42); POTASSIUM SERUM 4.7 MEQ/L (3.5-5.1); THYROID STIMULATING HORMONE 2.01 uIU/ML (0.358-3.740)
== END ==
LOC: M SFHCCLAY 07:39
PROVIDERS: ATTEND Family Medicine
DX: E78.2 Mixed hyperlipidemia (principal); E03.9 Hypothyroidism, unspecified; Z12.5 Encounter for screening for malignant neoplasm of prostate

== ENCOUNTER → 2022-08-02 | Outpatient (CLI) | payer MEDICARE, BC, OTHER ==
[~2022-08-02] MED LIST changes: +ALFU10TA3 PO; +LOPI600T PO; +VITAD400CA PO
== END ==
LOC: M LABSMTC 10:18
PROVIDERS: ATTEND Anesthesiology
DX: Z01.812 Encounter for preprocedural laboratory examination (principal); Z20.822 Contact with and (suspected) exposure to COVID-19

== ENCOUNTER 2022-08-06 07:18 | Day surgery (SDC) | payer MEDICARE, BC, OTHER ==
[~2022-08-06] VITALS: Ht 170.2 cm; Wt 80.3 kg
[~2022-08-06 07:18] MED LIST changes: +NS 1,000 ML IV ONE
[2022-08-06] MEDS ORDERED: LIDOCAINE 2% 100MG/5ML SDV (FOR ANES.) As Ordered ONE (08:39)
[2022-08-06] MEDS ORDERED: propofoL 200 MG/20 ML VIAL As Ordered ONE (08:39)
[2022-08-06 09:22] VITALS: BP 119/61
== END 2022-08-06 09:30 | disposition home or self-care (01) ==
LOC: M OPP 07:18
PROVIDERS: ATTEND Surgery
DX: Z12.11 Encounter for screening for malignant neoplasm of colon (principal); Z86.010 Personal history of colon polyps; D12.5 Benign neoplasm of sigmoid colon; K57.30 Diverticulosis of large intestine without perforation or abscess without bleeding; G56.92 Unspecified mononeuropathy of left upper limb; I65.29 Occlusion and stenosis of unspecified carotid artery; I10 Essential (primary) hypertension; E78.5 Hyperlipidemia, unspecified; G47.30 Sleep apnea, unspecified; N18.9 Chronic kidney disease, unspecified; N40.0 Benign prostatic hyperplasia without lower urinary tract symptoms; Z87.891 Personal history of nicotine dependence; Z79.02 Long term (current) use of antithrombotics/antiplatelets; Z79.1 Long term (current) use of non-steroidal anti-inflammatories (NSAID); Z79.52 Long term (current) use of systemic steroids; Z79.899 Other long term (current) drug therapy

== ENCOUNTER → 2022-10-28 | Outpatient (CLI) | payer MEDICARE, BC, OTHER ==
[~2022-10-28] MED LIST changes: -NS 1,000 ML IV ONE
== END ==
LOC: M RAD 06:34
PROVIDERS: ATTEND Nurse Practitioner Family
DX: N18.31 Chronic kidney disease, stage 3a (principal); I12.9 Hypertensive chronic kidney disease with stage 1 through stage 4 chronic kidney disease, or unspecified chronic kidney disease

== ENCOUNTER → 2023-03-12 | Outpatient (CLI) | payer MEDICARE, BC, OTHER ==
[2023-03-12 12:32] LABS: CREATININE FOR GFR 1.77 MG/DL (0.70-1.30); GLOMERULAR FILTRATION RATE 39.8 (>42); POTASSIUM SERUM 4.2 MMOL/L (3.5-5.1)
== END ==
LOC: M CLY 08:30
PROVIDERS: ATTEND Orthopaedic Surgery
DX: Z01.818 Encounter for other preprocedural examination (principal)

== ENCOUNTER → 2023-05-31 | Outpatient (REF) | payer MEDICARE, BC, OTHER ==
[2023-05-31 11:23] LABS: ALBUMIN 3.8 G/DL (3.2-5.2); BILIRUBIN,TOTAL 0.6 MG/DL (0.3-1.2); CREATININE FOR GFR 1.73 MG/DL (0.70-1.30); GLOMERULAR FILTRATION RATE 40.9 (>42); POTASSIUM SERUM 4.3 MMOL/L (3.5-5.1); TOTAL PROTEIN 6.4 G/DL (5.7-8.2)
[2023-05-31 11:27] LABS: THYROID STIMULATING HORMONE 1.286 uIU/ML (0.55-4.78)
== END ==
LOC: M SFHCCLAY 07:26
PROVIDERS: ATTEND Family Medicine
DX: Z12.5 Encounter for screening for malignant neoplasm of prostate (principal); E03.9 Hypothyroidism, unspecified; N18.9 Chronic kidney disease, unspecified
CPT/HCPCS: 80053; 84443; G0103

== ENCOUNTER → 2023-09-03 | Outpatient (CLI) | payer OTHER, MEDICARE, BC | LOC: M SLEEP 20:00 | PROVIDERS: ATTEND Nurse Practitioner Family | DX: G47.33 Obstructive sleep apnea (adult) (pediatric) (principal) ==

== ENCOUNTER → 2023-12-10 | Outpatient (CLI) | payer MEDICARE, BC, OTHER | LOC: M CLY 11:20 | PROVIDERS: ATTEND Family Medicine | DX: M25.551 Pain in right hip (principal); M25.552 Pain in left hip; M71.451 Calcium deposit in bursa, right hip; M71.452 Calcium deposit in bursa, left hip ==

== ENCOUNTER → 2023-12-10 | Outpatient (CLI) | payer MEDICARE, BC, OTHER | LOC: M CLY 11:03 | PROVIDERS: ATTEND Family Medicine | DX: Z53.9 Procedure and treatment not carried out, unspecified reason (principal) ==

== ENCOUNTER → 2024-01-03 | Outpatient (REF) | payer MEDICARE, BC, OTHER ==
[2024-01-03 19:04] LABS: CHOLESTEROL RISK RATIO 4.24 (<5); HDL CHOLESTEROL 39.1 MG/DL (>40); LDL CHOLESTEROL 70.1 MG/DL (<100); NON-HDL-C 126.9 MG/DL
== END ==
LOC: M LABDRAWC 17:16
PROVIDERS: ATTEND Physician Assistant
DX: E78.2 Mixed hyperlipidemia (principal)

== ENCOUNTER → 2024-09-12 | Outpatient (REF) | payer MEDICARE, BC, OTHER ==
[~2024-09-12] MED LIST changes: +ALFU10TA23 PO; -ALFU10TA3 PO
[2024-09-12 17:49] LABS: APPEARANCE, URINE CLEAR (CLEAR); BACTERIA, URINE AUTO NEGATIVE (NEGATIVE); BILIRUBIN, URINE AUTO NEGATIVE (NEGATIVE); BLOOD, URINE BLOOD NEGATIVE (NEGATIVE); COLOR, URINE YELLOW (YELLOW); GLUCOSE, URINE (UA) AUTO NEGATIVE (NEGATIVE); KETONE, URINE AUTO NEGATIVE (NEGATIVE); LEUKOCYTE ESTERASE, URINE AUTO NEGATIVE (NEGATIVE); MUCUS, URINE SMALL (NEGATIVE); NITRITE, URINE AUTO NEGATIVE (NEGATIVE); PROTEIN, URINE AUTO 2+ mg/dL (NEGATIVE); RBC, URINE AUTO 1 /HPF (0-3); SQUAMOUS EPITHELIAL CELL UR AU 0 /HPF (0-6); UROBILINOGEN, URINE AUTO 0.2 mg/dL (0.0-2.0); WBC, URINE AUTO 1 /HPF (0-3)
[2024-09-12 18:19] LABS: CREATININE, URINE 159.6 MG/DL
[2024-09-12 18:35] LABS: MAU/CREAT RATIO 594.6 MCG/MG (0.0-30.0)
== END ==
LOC: M LABDRAWC 16:42
PROVIDERS: ATTEND Nurse Practitioner Family
DX: I12.9 Hypertensive chronic kidney disease with stage 1 through stage 4 chronic kidney disease, or unspecified chronic kidney disease (principal); N18.31 Chronic kidney disease, stage 3a

== ENCOUNTER → 2024-11-28 | Outpatient (REF) | payer MEDICARE, BC, OTHER ==
[2024-11-28 17:31] LABS: FREE T4 1.44 NG/DL (0.89-1.76); THYROID STIMULATING HORMONE 0.56 uIU/ML (0.55-4.78)
== END ==
LOC: M SFHCCLAY 10:40
PROVIDERS: ATTEND Family Medicine
DX: E03.9 Hypothyroidism, unspecified (principal); E34.9 Endocrine disorder, unspecified

== ENCOUNTER → 2024-12-18 | Outpatient (CLI) | payer MEDICARE, BC, OTHER | LOC: M CLY 10:24 | PROVIDERS: ATTEND Family Medicine | DX: M54.50 Low back pain, unspecified (principal); Z53.9 Procedure and treatment not carried out, unspecified reason ==

== ENCOUNTER → 2024-12-18 | Outpatient (CLI) | payer MEDICARE, BC, OTHER | LOC: M CLY 09:57 | PROVIDERS: ATTEND Family Medicine | DX: M51.370 Other intervertebral disc degeneration, lumbosacral region with discogenic back pain only (principal) ==